=== PATIENT | female | born 1995 | race Caucasian/White ===

== ENCOUNTER 2024-10-21 07:30 | Emergency (ER) | payer BC, SELFPAY ==
[2024-10-21 07:46] VITALS: BP 146/94
[2024-10-21 08:03] VITALS: BP 140/81
[2024-10-21 08:06] VITALS: BP 140/81
[2024-10-21] MEDS: NSS 1000 IV (08:23)
[2024-10-21 08:27] VITALS: BMI 28.0
[2024-10-21 08:50] LABS: % Basophils 0.2 % (0-2); % Eosinophils 0.3 % (0-6); % Immature Granulocytes 0.4 % (0-0.5); % Lymphocytes 13.4 % (20.5-51.1); % Monocytes 9.7 % (1.7-9.3); Absolute Immature Granulocytes 0.1 10^3/uL (0-0.05); Absolute Monocytes 1.5 10^3/uL (0.1-0.6); Absolute Neutrophils 11.5 10^3/uL (1.4-6.5); HCG, Serum Qualitative Screen Negative; Hematocrit 35.9 % (37.0-47.0); Hemoglobin 12.7 g/dL (12.0-16.0); Mean Corp Hgb Conc. 35.4 g/dL (33.0-37.0); Mean Corpuscular Hgb 30.6 pg (27.0-31.0); Mean Corpuscular Volume 86.5 fL (81.0-99.0); Mean Platelet Volume 8.8 fL (7.4-10.4); Nucleated Red Blood Cells % 0 %; Platelet Count 200 10^3/uL (130-400); Red Blood Cell Count 4.15 10^6/uL (4.20-5.40); Red Cell Dist. Width 12.9 % (11.5-14.5); White Blood Cell Count 15.1 10^3/uL (4.8-10.8)
[2024-10-21 08:51] LABS: Urine Albumin 4+ (Neg - Trace); Urine Bilirubin Negative (Negative); Urine Character Cloudy (Clear); Urine Color Yellow; Urine Glucose Negative (Negative); Urine Ketone Negative (Negative); Urine Leukocyte 3+ (Negative); Urine Nitrite Negative (Negative); Urine Occult Blood 4+ (Negative); Urine Specific Gravity 1.015 (<1.030); Urine Urobilinogen Negative (Neg - 1+)
[2024-10-21 08:55] LABS: ALT (SGPT) 21 U/L (0-35); AST (SGOT) 16 U/L (14-36); Albumin 4.4 g/dl (3.5-5.0); Alkaline Phosphatase 65 U/L (38-126); Blood Urea Nitrogen 10 mg/dl (7-17); Calcium 9.3 mg/dl (8.4-10.2); Carbon Dioxide 22 mmol/L (22-30); Chloride 106 mmol/L (98-107); Estimated Creatinine Clearance 89 ml/min; Glucose 107 mg/dl (70-99); Lipase 40 U/L (23-300); Potassium 3.8 mmol/L (3.5-5.1); Sodium 138 mmol/L (135-145); Total Bilirubin 1.4 mg/dl (0.2-1.3); Total Protein 7.5 g/dl (6.3-8.2); eGFR > 60.00
[2024-10-21 09:00] VITALS: BP 126/74
[2024-10-21 09:06] LABS: Urine Squamous Cell 16-20 /LPF (Few)
[2024-10-21 09:07] LABS: Urine Amorphous Seen
[2024-10-21 09:10] LABS: Urine Bacteria Few (Negative); Urine Red Blood Cell 26-30 /HPF (0-2); Urine White Cell >100 /HPF (0-5)
[2024-10-21 10:03] VITALS: BP 123/78
--- NOTE | 2024-10-21 10:15 | ED.GENMED ---
History of Present Illness
General
Chief Complaint: Abdominal Symptoms
Source: patient
Time Seen by Provider: 10/21/24 07:54
History of Present Illness
History of Present Illness:
29-year-old female presents with right-sided abdominal pain. She also reports a little bit toward her flank. She admits that she had a fever of 103 last night. She denies dysuria. No hematuria. No urinary urgency or hesitancy. Denies any
urinary symptoms. Was a little bit nauseous last night. She did take ibuprofen this morning.
Past History
Past History
ED Past Medical History: HTN
ED Past Surgical History:
Social History
Tobacco: Non-smoker
Living: with family
Phy Exam
Physical Exam
Physical Exam:
CONSTITUTIONAL Patient alert and oriented to person, place and time. Well-appearing. Vital signs reviewed.
HEAD atraumatic, normocephalic.
EYES eyelids normal to inspection, Extraocular muscles intact, Conjunctiva normal, Sclera normal.
NECK normal range of motion, Trachea midline, no jugular venous distention.
RESPIRATORY CHEST No respiratory distress noted, Chest expansion equal, Bilateral breath sounds clear.
CARDIOVASCULAR regular rate and rhythm, Heart sounds normal.
ABDOMEN moderate right lower quadrant tenderness,
BACK normal inspection, no obvious deformities, no CVA tenderness
UPPER EXTREMITY range of motion normal, Motor strength normal, no cyanosis, no edema.
LOWER EXTREMITY range of motion normal, Motor strength normal, no cyanosis, no edema.
NEURO Speech normal, No focal motor deficits, Mitzi coma scale 15, Memory normal, Cranial Nerves intact to screening exam.
SKIN skin warm, dry, and normal in color.
Course
Orders/Labs/Results
Orders:
Orders
10/21/24 08:14
Test Result ONCE
10/21/24 08:18
Complete Blood Count/With Diff Urgent
Comprehensive Metabolic Panel Urgent
HCG, Serum Qualitative Screen Urgent
Lipase Urgent
Urinalysis Reflex To Culture Urgent
Date Specimen was Collected: 10/21/24
Time Specimen was Collected: 08:16
Urine Microscopic Reflex Cult Urgent
Urine Culture Urgent
POPEYE Source: U
Specimen Description:
Date Specimen was Collected: 10/21/24
Time Specimen was Collected: 08:16
10/21/24 08:22
0.9% Sodium Chloride 1000 ml [Nss] 1,000 ml IV BOLUS
10/21/24 08:57
CT Abd/pelvis W Iv Cont Urgent
Comment:
Reason For Exam: RLQ abd pain
10/21/24 10:00
CefTRIAXone [Rocephin] 1,000 mg IV NOW STA
Abnormal Lab Results
10/21/24
08:18
WBC 15.1 H 10^3/uL
(4.8-10.8)
RBC 4.15 L 10^6/uL
(4.20-5.40)
Hct 35.9 L %
(37.0-47.0)
Abs Immat Gran (auto) 0.1 H 10^3/uL
(0-0.05)
Absolute Neuts (auto) 11.5 H 10^3/uL
(1.4-6.5)
Absolute Monos (auto) 1.5 H 10^3/uL
(0.1-0.6)
Neutrophils % 76.0 H %
(42.2-75.2)
Lymphocytes % 13.4 L %
(20.5-51.1)
Monocytes % 9.7 H %
(1.7-9.3)
Glucose 107 H mg/dl
(70-99)
Total Bilirubin 1.4 H mg/dl
(0.2-1.3)
Ur Occult Blood Reflex 4+ A
(Negative)
Leukocyte Esterase Rfl 3+ A
(Negative)
Urine RBC 26-30 A /HPF
(0-2)
Urine WBC (Reflex) >100 A /HPF
(0-5)
Urine Bacteria (Reflex) Few A
(Negative)
Urine Albumin (Reflex) 4+ A
(Neg - Trace)
10/21/24 08:18
10/21/24 08:18
Vital Signs
Initial and Last Documented VS:
Initial Vital Signs
Temp Pulse Resp BP Pulse Ox
99.2 F 93 22 146/94 98
10/21/24 07:46 10/21/24 07:46 10/21/24 07:46 10/21/24 07:46 10/21/24 07:46
Last Documented Vital Signs
Temp Pulse Resp BP Pulse Ox
98.7 F 83 16 140/81 98
10/21/24 08:01 10/21/24 08:06 10/21/24 08:06 10/21/24 08:06 10/21/24 08:15
MDM/Problems Addressed
Differential Diagnosis Includes:
Appendicitis, colitis, cystitis, pyelonephritis, ovarian torsion, ovarian abscess
MDM/Problems Addressed:
Acute pyelonephritis
*Radiology
Radiology exam reviewed: preliminary read by ED provider (No free air noted) and radiology read reviewed
*Pulse Oximetry
Patient hypoxic: no
*Critical Care Note
Total Time (30-74mins, 75-104mins- exclusive of procedures): Not Applicable
Data Reviewed
Source: patient
Patient Management
Escalation/DeEscalation of care consider admission/obs:
Consider admission but patient is holding down oral intake. Okay for outpatient management.
ED Attending Note
-
Portions of this chart may have been created with voice recognition software.� Occasional wrong word or��sound alike� substitutions may have occurred due to the inherent limitations of voice recognition software.
Discharge Plan
Departure
Patient Disposition: Home (Routine Discharge)
Date of Disposition: 10/21/24
Time of Disposition: 10:26
Patient with high blood pressure during this ER visit?: No
Discharge Problem:
Acute pyelonephritis
Instructions: Urinary tract infection in adults - ED discharge instructions
Prescriptions:
New
sulfamethoxazole-trimethoprim [Bactrim DS] 800-160 mg tablet
1 tab PO BID Qty: 14 0RF
No Action
prenat.vits,selina,ece-htyh-bfcou Tablet
1 tab PO DAILY
acetaminophen 325 mg Tablet
650 mg PO Q4HPRN PRN (Reason: mild pain) Qty: 0 0RF
ferrous sulfate [FeroSul] 325 mg (65 mg iron) Tablet
325 mg PO DAILY Qty: 0 0RF
ibuprofen 600 mg Tablet
600 mg PO Q6HPRN PRN (Reason: cramps) Qty: 0 0RF
oxycodone-acetaminophen 5-325 mg Tablet
1 tab PO Q4HPRN PRN (Reason: moderate pain) Qty: 12 0RF
Referrals:
Royce Anguiano MD [Family Provider] -
Activity Restrictions/Additional Instructions:
Please see your doctor in the next 3 to 5 days for follow-up. Return today for intractable vomiting, worsening pain or any other concerns. Drink plenty of fluids.
Interventions
Interventions:
*Risk Screen - Suicide Last Done: 10/21/24 07:48
*General Assessment Last Done: 10/21/24 08:01
*ED COVID-19 Vaccine History Last Done: 10/21/24 08:01
CS-Habtwv-Uxerqprsqj Assessment Last Done: 10/21/24 08:01
Discharge Date and Time
Print Language: SWEDISH
[2024-10-21] MEDS: ROCEPHIN 1000 MG IV (10:36)
== END 2024-10-21 11:00 | disposition home or self-care (01) ==
LOC: EMR 07:30
PROVIDERS: EMERGENCY PHYSICIAN Emergency Medicine; FAMILY PHYSICIAN Family Medicine
DX: N10 Acute pyelonephritis (principal); I10 Essential (primary) hypertension
CPT/HCPCS: 99284; 96374; 96361; 74177; 80053; 81003; 81015; 83690; 84703; 85025; 87077; 87086; 87186; Q9967

== ENCOUNTER 2025-03-18 11:10 | Emergency (ER) | payer BC, SELFPAY ==
[2025-03-18 11:11] VITALS: BP 166/100
--- NOTE | 2025-03-18 13:58 | ED.GENMED ---
History of Present Illness
<Juan Alberto Otero Jr., PA-C - Last Filed: 03/20/25 14:10>
General
Chief Complaint: Head Injury
Source: patient
Exam Limitations: none
Time Seen by Provider: 03/18/25 12:00
Nursing documentation reviewed up to this point in time: agreed with
History of Present Illness
History of Present Illness:
29-year-old female presenting to the emergency department today with concerns of discomfort ongoing nausea lightheadedness blurred vision that seem to worse after going to work today. Slipped and fell hitting the back of her head 3 days ago at home
unsure if she lost consciousness at the time. Has felt 'off' since. Was feeling somewhat better at home but today when going to work felt worse. She spoke with her primary care doctor and she was told to go to the ER for further assessment and
potential CT scan
Past History
<BENITO Alfred Jr. Last Filed: 03/20/25 14:10>
Past History
ED Past Medical History: HTN
ED Past Surgical History:
Social History
Tobacco: Non-smoker
Living: with family
Review of Systems
<BENITO Alfred Jr. Last Filed: 03/20/25 14:10>
Review of Systems
Allergies reviewed?: Yes
All Other Systems: ROS reviewed and negative except as documented in HPI and ROS
Phy Exam
<BENITO Alfred Jr. Last Filed: 03/20/25 14:10>
Physical Exam
Physical Exam:
GENERAL: Alert , in no apparent distress
EYE: pupils equal and reactive
NECK: Supple, no significant adenopathy.
ENT: o/p clr, mmm.
CARDIAC: Regular rate and rhythm .
LUNGS: Clear breath sounds bilaterally, no acute respiratory distress, no wheezes/rales/rhonchi
ABDOMEN: Soft, without focal tenderness, no r/g, no cvat
NEUROLOGICAL: Alert and oriented, no focal neuro deficits 5 out of 5 upper and lower extremity strength normal sensation when palpating bilaterally.
SKIN: Warm and dry, skin intact.
MUSCULOSKELETAL: No edema, well perfused.
PSYCH: Normal and appropriate interaction.
Course
<Juan Alberto Otero Jr., PA-C - Last Filed: 03/20/25 14:10>
Orders/Labs/Results
Orders:
Orders
03/18/25 12:18
CT Head W/o Iv Contrast Urgent
Comment:
Reason For Exam: fall hit back paf head
Vital Signs
Initial and Last Documented VS:
Initial Vital Signs
Pulse Resp BP Pulse Ox
89 18 166/100 100
03/18/25 11:11 03/18/25 11:11 03/18/25 11:11 03/18/25 11:11
Last Documented Vital Signs
Pulse Resp BP Pulse Ox
81 18 154/82 99
03/18/25 15:00 03/18/25 15:00 03/18/25 15:00 03/18/25 15:00
<Onesimo Delatorre PA-C - Last Filed: 03/18/25 19:56>
Orders/Labs/Results
Orders:
Orders
03/18/25 12:18
CT Head W/o Iv Contrast Urgent
Comment:
Reason For Exam: fall hit back paf head
Vital Signs
Initial and Last Documented VS:
Initial Vital Signs
Pulse Resp BP Pulse Ox
89 18 166/100 100
03/18/25 11:11 03/18/25 11:11 03/18/25 11:11 03/18/25 11:11
Last Documented Vital Signs
Pulse Resp BP Pulse Ox
81 18 154/82 99
03/18/25 15:00 03/18/25 15:00 03/18/25 15:00 03/18/25 15:00
<Juan Alberto Otero Jr., PA-C - Last Filed: 03/20/25 14:10>
MDM/Problems Addressed
MDM/Problems Addressed:
29-year-old female presenting to the emergency department today few days after slipping and hitting the back of her head. She has had nausea some episodes of vomiting confusion blurred vision. Here she is generally well-appearing no distress
slightly hypertensive otherwise vital signs are normal. Symptoms seem most consistent with concussion.
<Juan Alberto Otero Jr., PA-C - Last Filed: 03/20/25 14:10>
*Pulse Oximetry
SaO2: 100
Oxygen Mode of Delivery: Room air
<Onesimo Delatorre PA-C - Last Filed: 03/18/25 19:56>
*Pulse Oximetry
Patient hypoxic: no
*Critical Care Note
Total Time (30-74mins, 75-104mins- exclusive of procedures): Not Applicable
<Onesimo Delatorre PA-C - Last Filed: 03/18/25 19:56>
Patient Management
Escalation/DeEscalation of care consider admission/obs:
Patient received in signout pending CT report.
CT head negative for any acute pathology. Likely concussion. Stable for d/c home. Aware of return precautions.
ED Attending Note
<Juan Alberto Otero Jr., PA-C - Last Filed: 03/20/25 14:10>
-
Portions of this chart may have been created with voice recognition software.� Occasional wrong word or��sound alike� substitutions may have occurred due to the inherent limitations of voice recognition software.
Discharge Plan
Departure
Patient Disposition: Home (Routine Discharge)
Date of Disposition: 03/18/25
Time of Disposition: 14:56
Patient with high blood pressure during this ER visit?: No
Condition: Good
Covid-19: Not Applicable
Discharge Problem:
Mild TBI (traumatic brain injury)
Instructions: Concussion, Adult (DC)
Prescriptions:
No Action
prenat.vits,selina,eod-crdy-fgvqg Tablet
1 tab PO DAILY
acetaminophen 325 mg Tablet
650 mg PO Q4HPRN PRN (Reason: mild pain) Qty: 0 0RF
ferrous sulfate [FeroSul] 325 mg (65 mg iron) Tablet
325 mg PO DAILY Qty: 0 0RF
ibuprofen 600 mg Tablet
600 mg PO Q6HPRN PRN (Reason: cramps) Qty: 0 0RF
oxycodone-acetaminophen 5-325 mg Tablet
1 tab PO Q4HPRN PRN (Reason: moderate pain) Qty: 12 0RF
sulfamethoxazole-trimethoprim [Bactrim DS] 800-160 mg tablet
1 tab PO BID Qty: 14 0RF
Referrals:
Renuka Garcia PA [Family Provider, Family Practice]
Stand Alone Forms: Return to Work
Activity Restrictions/Additional Instructions:
You came to the emergency department today with concerns of head trauma that is caused a concussion. Here had a reassuring CT scan. Please rest over the next few days with gradual return to activity. Please follow closely with the primary care
doctor if symptoms are persisting. Return for any worsening, new or concerning symptoms.
Interventions
Interventions:
*Risk Screen - Suicide Last Done: 03/18/25 11:11
*General Assessment Last Done: 03/18/25 11:11
*Nursing Disposition Last Done: 03/18/25 15:00
ED- Neurological Assessment Last Done: 03/18/25 12:37
ED-Skin Assessment Last Done: 03/18/25 12:37
Discharge Date and Time
Discharge Date/Time: 03/18/25 15:01
Print Language: BELARUSIAN
[2025-03-18 15:00] VITALS: BP 154/82
== END 2025-03-18 15:01 | disposition home or self-care (01) ==
LOC: EMR 11:10
PROVIDERS: EMERGENCY PHYSICIAN Student in an Organized Health Care Education/Training Program; FAMILY PHYSICIAN Family Medicine
DX: S06.9XAA Unspecified intracranial injury with loss of consciousness status unknown, initial encounter (principal); W01.198A Fall on same level from slipping, tripping and stumbling with subsequent striking against other object, initial encounter; I10 Essential (primary) hypertension
CPT/HCPCS: 99284; 70450

== ENCOUNTER 2025-05-21 11:46 | Emergency (ER) | payer BC, SELFPAY ==
[2025-05-21 12:01] VITALS: BP 150/93
--- NOTE | 2025-05-21 12:33 | ED.GENMED ---
History of Present Illness
General
Chief Complaint: Abdominal Symptoms
Time Seen by Provider: 05/21/25 12:20
History of Present Illness
History of Present Illness:
29-year-old female presents to the emergency department for evaluation of right lower quadrant abdominal pain radiating toward the right flank and back for the past 12 to 16 hours. Reports associated nausea and vomiting. No fevers but does have
night sweats and chills. Small amount of diarrhea. Prior abdominal surgical history includes cholecystectomy. No ill contacts at home. Last menstrual cycle was 2 to 3 weeks ago
Past History
Past History
ED Past Medical History: HTN
ED Past Surgical History:
Social History
Tobacco: Non-smoker
Living: with family
Review of Systems
Review of Systems
Allergies reviewed?: Yes
All Other Systems: ROS reviewed and negative except as documented in HPI and ROS
Phy Exam
Physical Exam
Physical Exam:
GEN: Well appearing, NAD, WDWN
HEENT: Oral mucosa moist, no scleral icterus
Cardiac: Regular rate
Lung: No respiratory distress, no tachypnea
Abd: Soft, focal RLQ tenderness w/ mild diffuse lower abd tenderness, no rigidity
MSK: No gross deformity or injuries
Skin: Good color, no pallor or jaundice, no rashes
Neuro: AO x3, moves all extremities freely
Psych: Calm, cooperative
Course
Orders/Labs/Results
Orders:
Orders
05/21/25 12:04
Test Result ONCE
05/21/25 12:09
Complete Blood Count/With Diff Urgent
Comprehensive Metabolic Panel Urgent
HCG, Serum Qualitative Screen Urgent
Lipase Urgent
05/21/25 12:31
CT Abd/Pel (IV only)-DH only Urgent
Comment:
Reason For Exam: RLQ pain/N/V
0.9% Sodium Chloride 1000 ml [Nss] 1,000 ml IV BOLUS
Ketorolac [Toradol] 15 mg IV NOW STA
Ondansetron Injectable [Zofran] 4 mg IV NOW STA
05/21/25 14:03
CefTRIAXone [Rocephin] 1,000 mg IV NOW STA
05/21/25 14:18
Sterile Water [Sterile Water For Injection] 10 ml .ROUTE .[facility]
05/21/25 14:26
Urinalysis Reflex To Culture Urgent
Date Specimen was Collected: 05/21/25
Time Specimen was Collected: 12:04
Urine Microscopic Reflex Cult Urgent
Urine Culture Urgent
POPEYE Source: U
Specimen Description:
Obtained by: Random
Date Specimen was Collected: 05/21/25
Time Specimen was Collected: 12:04
Abnormal Lab Results
05/21/25 05/21/25
12:09 14:26
WBC 18.3 H 10^3/uL
(4.8-10.8)
Abs Immat Gran (auto) 0.1 H 10^3/uL
(0-0.05)
Absolute Neuts (auto) 14.9 H 10^3/uL
(1.4-6.5)
Absolute Monos (auto) 1.0 H 10^3/uL
(0.1-0.6)
Neutrophils % 81.8 H %
(42.2-75.2)
Lymphocytes % 12.0 L %
(20.5-51.1)
Ur Occult Blood Reflex 3+ A
(Negative)
Leukocyte Esterase Rfl 3+ A
(Negative)
Urine RBC 26-30 A /HPF
(0-2)
Urine WBC (Reflex) 60-70 A /HPF
(0-5)
Urine Bacteria (Reflex) Moderate A
(Negative)
Urine Albumin (Reflex) 3+ A
(Neg - Trace)
05/21/25 12:09
05/21/25 12:09
Vital Signs
Initial and Last Documented VS:
Initial Vital Signs
Temp Pulse Resp BP Pulse Ox
98.2 F 74 16 150/93 98
05/21/25 12:01 05/21/25 12:01 05/21/25 12:01 05/21/25 12:01 05/21/25 12:01
Last Documented Vital Signs
Temp Pulse Resp BP Pulse Ox
98.2 F 85 16 136/91 96
05/21/25 12:01 05/21/25 15:12 05/21/25 15:12 05/21/25 15:12 05/21/25 15:12
MDM/Problems Addressed
MDM/Problems Addressed:
Imaging reveals a ascending UTI, the patient does have leukocytosis and tactile fevers. However after IV antibiotics, pain control, and fluids she is significantly improved and is comfortable with discharge home. She is no longer vomiting thus
p.o. therapy is appropriate, ED return parameters discussed
*Pulse Oximetry
SaO2: 98
Oxygen Mode of Delivery: Room air
Patient hypoxic: no
*Critical Care Note
Total Time (30-74mins, 75-104mins- exclusive of procedures): Not Applicable
ED Attending Note
-
Portions of this chart may have been created with voice recognition software.� Occasional wrong word or��sound alike� substitutions may have occurred due to the inherent limitations of voice recognition software.
Discharge Plan
Departure
Patient Disposition: Home (Routine Discharge)
Date of Disposition: 05/21/25
Time of Disposition: 15:00
Patient with high blood pressure during this ER visit?: No
Discharge Problem:
Acute upper urinary tract infection
Instructions: Urinary tract infection in adults - ED (DC)
Prescriptions:
New
cefdinir 300 mg capsule
300 mg PO BID 9 Days Qty: 18 0RF
ondansetron 4 mg tablet,disintegrating
4 mg PO TIDPRN PRN (Reason: nausea/vomiting) Qty: 10 0RF
No Action
prenat.vits,selina,[id number]-ckmze Tablet
1 tab PO DAILY
acetaminophen 325 mg Tablet
650 mg PO Q4HPRN PRN (Reason: mild pain) Qty: 0 0RF
ferrous sulfate [FeroSul] 325 mg (65 mg iron) Tablet
325 mg PO DAILY Qty: 0 0RF
ibuprofen 600 mg Tablet
600 mg PO Q6HPRN PRN (Reason: cramps) Qty: 0 0RF
oxycodone-acetaminophen 5-325 mg Tablet
1 tab PO Q4HPRN PRN (Reason: moderate pain) Qty: 12 0RF
sulfamethoxazole-trimethoprim [Bactrim DS] 800-160 mg tablet
1 tab PO BID Qty: 14 0RF
Referrals:
Renuka Garcia PA [Family Provider, Family Practice]
Interventions
Interventions:
*General Assessment Last Done: 05/21/25 12:01
*Neglect/Abuse Screening Last Done: 05/21/25 12:01
*ED COVID-19 Vaccine History Last Done: 05/21/25 12:01
*ED Influenza Vaccine History Last Done: 05/21/25 12:01
[facility] Risk Assessment Tool Last Done: 05/21/25 13:12
*Risk Screen - Suicide (C-SSRS) Last Done: 05/21/25 12:01
*Nursing Disposition Last Done: 05/21/25 15:14
CJ-Kdxlth-Jxsbebnfrf Assessment Last Done: 05/21/25 13:12
Discharge Date and Time
Discharge Date/Time: 05/21/25 15:16
Print Language: MOZAMBICAN
[2025-05-21] MEDS: NSS 1000 IV (12:39)
[2025-05-21] MEDS: ZOFRAN 4 MG IV (12:40)
[2025-05-21] MEDS: TORADOL 15 MG IV (12:40)
[2025-05-21 12:51] LABS: ALT (SGPT) 27 U/L (0-35); AST (SGOT) 25 U/L (14-36); Albumin 4.8 g/dl (3.5-5.0); Alkaline Phosphatase 73 U/L (38-126); Blood Urea Nitrogen 10 mg/dl (7-17); Calcium 9.6 mg/dl (8.4-10.2); Carbon Dioxide 22 mmol/L (22-30); Chloride 103 mmol/L (98-107); Glucose 97 mg/dl (70-99); Hematocrit 38.1 % (37.0-47.0); Hemoglobin 13.3 g/dL (12.0-16.0); Lipase 49 U/L (23-300); Mean Corp Hgb Conc. 34.9 g/dL (33.0-37.0); Mean Corpuscular Volume 83.9 fL (81.0-99.0); Nucleated Red Blood Cells % 0 %; Platelet Count 231 10^3/uL (130-400); Potassium 4.6 mmol/L (3.5-5.1); Red Cell Dist. Width 12.7 % (11.5-14.5); Sodium 135 mmol/L (135-145); Total Protein 8.2 g/dl (6.3-8.2); eGFR > 60.00
[2025-05-21 13:02] LABS: HCG, Serum Qualitative Screen Negative
[2025-05-21] MEDS: ROCEPHIN 1000 MG IV (14:28)
[2025-05-21 14:37] LABS: Urine Character Slightly Cloudy (Clear)
[2025-05-21 14:47] LABS: Urine Squamous Cell 0-2 /LPF (Few)
[2025-05-21 14:48] LABS: Urine Red Blood Cell 26-30 /HPF (0-2); Urine White Cell 60-70 /HPF (0-5)
[2025-05-21 15:12] VITALS: BP 136/91
== END 2025-05-21 15:16 | disposition home or self-care (01) ==
LOC: EMR 11:46
PROVIDERS: Student in an Organized Health Care Education/Training Program; EMERGENCY PHYSICIAN Emergency Medicine; FAMILY PHYSICIAN Family Medicine
DX: N12 Tubulo-interstitial nephritis, not specified as acute or chronic (principal); N30.90 Cystitis, unspecified without hematuria; B96.20 Unspecified Escherichia coli [E. coli] as the cause of diseases classified elsewhere; I10 Essential (primary) hypertension
CPT/HCPCS: 99284; 96374; 96375 ×2; 74177; 80053; 81003; 81015; 83690; 84703; 85025; 87077; 87086; 87186; Q9967